=== PATIENT | male | born 1965 | race Caucasian/White ===

== ENCOUNTER 2021-09-16 09:04 | Outpatient (CLI) | payer OTHER | END 2021-09-16 09:05 | disposition home or self-care (01) | LOC: BICCT 09:04 | PROVIDERS: ATTEND Family Medicine | DX: Z12.2 Encounter for screening for malignant neoplasm of respiratory organs (principal); F17.210 Nicotine dependence, cigarettes, uncomplicated; J44.9 Chronic obstructive pulmonary disease, unspecified; N28.1 Cyst of kidney, acquired | CPT/HCPCS: 71271 ==

== ENCOUNTER 2022-05-01 13:08 | Outpatient (CLI) | payer OTHER ==
[2022-05-01 15:03] LABS: Hemoglobin 15.5 g/dL (13.5-17.5); Mean Corpuscular Hemoglobin 31.4 pg (27.0-33.0); Mean Corpuscular Volume 92.3 fl (81.2-95.1); Mean Platelet Volume 10.1 fl (7.4-10.4); Platelet Count 223 10x3/uL (150-450); RBC Distribution Width 12.8 % (11.5-14.5); Red Blood Cell (RBC) Count 4.94 10x6/uL (4.32-5.72); White Blood Cell (WBC) Count 8.7 10x3/uL (3.5-10.5)
[2022-05-01 15:07] LABS: Bilirubin Neg (Negative); Blood, Urine Negative (Negative); Clarity Clear (Clear); Glucose, Urine (Dipstick) Normal (Negative); Ketone, Urine Negative (Negative); Leukocyte Negative (Negative); Nitrite Negative (Negative); Protein, Urine (Dipstick) Negative (Neg-Trace); Specific Gravity, Urine 1.015 (1.005-1.030); Urobilinogen Normal mg/dL (Less than 2)
[2022-05-01 15:23] LABS: INR-International Normal Ratio 0.9; PTT 28.2 sec (22.0-33.0); Prothrombin Time 10.3 sec (9.5-12.1)
[2022-05-01 15:26] LABS: Bacteria/HPF Rare-Few HPF (None Seen); RBC/HPF 0-3 HPF (0-3); Squamous Epithelial 0-3 HPF (0-3); WBC/HPF 0-3 HPF (0-3)
[2022-05-01 15:27] LABS: Anion Gap 16 mmol/L (10-20); BUN (Urea Nitrogen) 19 mg/dL (8.4-25.7); Calc. Creatinine Clearance 0 mL/min (70-130); Calcium 9.5 mg/dL (7.8-10.44); Carbon Dioxide 26 mmol/L (22-29); Chloride 104 mmol/L (98-107); Estimated GFR 94; Glucose 105 mg/dL (70-105); Potassium 3.9 mmol/L (3.5-5.1); Sodium 142 mmol/L (136-145)
== END 2022-05-01 13:09 | disposition home or self-care (01) ==
LOC: LABBT 13:08
PROVIDERS: ATTEND Urology
DX: Z01.818 Encounter for other preprocedural examination (principal); N40.1 Benign prostatic hyperplasia with lower urinary tract symptoms; R35.0 Frequency of micturition; K58.1 Irritable bowel syndrome with constipation; N52.01 Erectile dysfunction due to arterial insufficiency; M51.37 Other intervertebral disc degeneration, lumbosacral region; Z20.822 Contact with and (suspected) exposure to COVID-19
CPT/HCPCS: 80048; 81001; 85027; 85610; 85730; 87086; 87811; 93005; 93010

== ENCOUNTER 2022-05-04 08:33 | Day surgery (SDC) | payer OTHER ==
[2022-05-04] MEDS ORDERED: fentaNYL Citrate/PF 100 MCG/2 ML SYRINGE ONE (11:00)
[2022-05-04] MEDS ORDERED: Bupivacaine 0.25% HCL 30 ML VIAL ONE (11:07)
[2022-05-04] MEDS ORDERED: Levofloxacin 500 mg/D5W 100 ml Premix Bag ONE (11:20)
[2022-05-04] MEDS ORDERED: Glycopyrrolate 0.2 MG/ML 5 ML SYRINGE ONE (11:31)
[2022-05-04] MEDS ORDERED: Ondansetron PF 4 MG/2 ML Vial ONE (11:31)
[2022-05-04] MEDS ORDERED: PHENYLEPHRINE-NS 100 MCG/ML 10 ML SYRINGE ONE (11:31)
[2022-05-04] MEDS ORDERED: PROPOFOL 200 MG/20 ML VIAL ONE (11:31)
[2022-05-04] MEDS ORDERED: Dexamethasone 20 MG/5 ML VIAL ONE (11:31)
[2022-05-04] MEDS ORDERED: Lidocaine 1% PF 5 ML VIAL ONE (11:31)
[2022-05-04] MEDS ORDERED: Succinylcholine 200 MG/10 ml SYRINGE FS ONE (11:31)
[2022-05-04] MEDS ORDERED: ePHEDrine 50 MG/ML VIAL ONE (11:31)
[2022-05-04] MEDS ORDERED: Fentanyl 100 MCG/2 ML VIAL ONE (13:08)
== END 2022-05-04 19:25 | disposition home or self-care (01) ==
LOC: SDC 08:33
PROVIDERS: ATTEND Urology
PROC: 01HY3MZ Insertion of Neurostimulator Lead into Peripheral Nerve, Percutaneous Approach (ICD-10-PCS; principal; 2022-05-04)
DX: N32.81 Overactive bladder (principal); N39.41 Urge incontinence; R39.0 Extravasation of urine; N40.1 Benign prostatic hyperplasia with lower urinary tract symptoms; R35.0 Frequency of micturition; K58.1 Irritable bowel syndrome with constipation; N52.01 Erectile dysfunction due to arterial insufficiency; G25.81 Restless legs syndrome; G43.909 Migraine, unspecified, not intractable, without status migrainosus; G62.9 Polyneuropathy, unspecified; M51.37 Other intervertebral disc degeneration, lumbosacral region; F17.210 Nicotine dependence, cigarettes, uncomplicated; Z79.899 Other long term (current) drug therapy; Z88.0 Allergy status to penicillin; Z20.822 Contact with and (suspected) exposure to COVID-19; Z98.890 Other specified postprocedural states; Z90.49 Acquired absence of other specified parts of digestive tract
CPT/HCPCS: 72220; 76000; C1897; J1100; J1956; J2405; J2704; J3010; J3370; J3490; S0020

== ENCOUNTER 2022-05-11 10:26 | Day surgery (SDC) | payer OTHER ==
[2022-05-02 15:36] VITALS: BMI 24.3
[2022-05-11] MEDS ORDERED: Lidocaine 1% MPF 2 ML VIAL ONE (11:10)
[2022-05-11] MEDS ORDERED: Sodium Chloride 0.9% 100 ML ONE (11:10)
[2022-05-11] MEDS ORDERED: CEFAZOLIN 2 GM VIAL ONE (11:10)
[2022-05-11] MEDS ORDERED: fentaNYL Citrate/PF 100 MCG/2 ML SYRINGE ONE (13:20)
[2022-05-11] MEDS ORDERED: Vancomycin 1 GM/200 ML BAG ONE (13:32)
[2022-05-11] MEDS ORDERED: ePHEDrine 50 MG/ML VIAL ONE (13:42)
[2022-05-11] MEDS ORDERED: Ondansetron PF 4 MG/2 ML Vial ONE (13:42)
[2022-05-11] MEDS ORDERED: Dexamethasone 20 MG/5 ML VIAL ONE (13:42)
[2022-05-11] MEDS ORDERED: Glycopyrrolate 0.2 MG/ML 5 ML SYRINGE ONE (13:42)
[2022-05-11] MEDS ORDERED: PHENYLEPHRINE-NS 100 MCG/ML 10 ML SYRINGE ONE (13:42)
[2022-05-11] MEDS ORDERED: Rocuronium Bromide 10 MG/ML (10ML VIAL) ONE (13:42)
[2022-05-11] MEDS ORDERED: PROPOFOL 200 MG/20 ML VIAL ONE (13:42)
[2022-05-11] MEDS ORDERED: NEOSTIGMINE 3 MG/3 ML SYR 3 MG/3 ML SYRINGE ONE (13:42)
[2022-05-11] MEDS ORDERED: Neomycin-Polymyxin 1 ML AMP ONE (14:09)
[2022-05-11] MEDS ORDERED: Bupivacaine 0.25% HCL 30 ML VIAL ONE (14:09)
[2022-05-11] MEDS ORDERED: Fentanyl 100 MCG/2 ML VIAL ONE (14:52)
[2022-05-11] MEDS ORDERED: HYDROcodone/Acetaminophen 5/325 mg Tablet ONE (16:01)
== END 2022-05-11 17:41 | disposition home or self-care (01) ==
LOC: SDC 10:26
PROVIDERS: ATTEND Urology
PROC: 0JH70BZ Insertion of Single Array Stimulator Generator into Back Subcutaneous Tissue and Fascia, Open Approach (ICD-10-PCS; principal; 2022-05-11)
PROC: 01HY3MZ Insertion of Neurostimulator Lead into Peripheral Nerve, Percutaneous Approach (ICD-10-PCS; principal; 2022-05-11)
PROC: 0JH80BZ Insertion of Single Array Stimulator Generator into Abdomen Subcutaneous Tissue and Fascia, Open Approach (ICD-10-PCS; principal; 2022-05-11)
DX: N32.81 Overactive bladder (principal); R33.9 Retention of urine, unspecified; R39.0 Extravasation of urine; Z79.899 Other long term (current) drug therapy; Z88.0 Allergy status to penicillin
CPT/HCPCS: J0690; J1100; J2405; J2704; J3010; J3370; J3490; S0020

== ENCOUNTER 2023-01-01 05:42 | Day surgery (SDC) | payer OTHER ==
[2022-12-28 08:39] VITALS: BMI 30.4
[2023-01-01] MEDS ORDERED: SUGAMMADEX SODIUM 200 MG/2 ML VIAL ONE (06:48)
[2023-01-01] MEDS ORDERED: fentaNYL PF 100 MCG/2 ML SYRINGE ONE ×3 (06:48→08:34)
[2023-01-01] MEDS ORDERED: Bupivacaine/Epinephrine 0.25% 30 ML VIAL ONE (06:49)
[2023-01-01] MEDS ORDERED: Levofloxacin 500 mg/D5W 100 ml Premix Bag ONE (07:02)
[2023-01-01] MEDS ORDERED: Rocuronium Bromide 10 MG/ML (10ML VIAL) ONE (07:31)
[2023-01-01] MEDS ORDERED: Lidocaine 1% PF 5 ML VIAL ONE (07:31)
[2023-01-01] MEDS ORDERED: PROPOFOL 200 MG/20 ML VIAL ONE (07:31)
[2023-01-01] MEDS ORDERED: HYDROmorphone 0.5 MG/0.5 ML SYRINGE ONE ×3 (08:18→08:49)
[2023-01-01] MEDS ORDERED: Ketorolac Tromethamine 30 MG/ML VIAL ONE (08:51)
== END 2023-01-01 10:51 | disposition home or self-care (01) ==
LOC: SDC 05:42
PROVIDERS: ATTEND Surgery
PROC: 0WUF0JZ Supplement Abdominal Wall with Synthetic Substitute, Open Approach (ICD-10-PCS; principal; 2023-01-01)
DX: K43.2 Incisional hernia without obstruction or gangrene (principal); N40.0 Benign prostatic hyperplasia without lower urinary tract symptoms; F17.210 Nicotine dependence, cigarettes, uncomplicated; Z88.0 Allergy status to penicillin; Z90.49 Acquired absence of other specified parts of digestive tract; Z90.89 Acquired absence of other organs
CPT/HCPCS: C1781; J1170; J1885; J1956; J2704; J7611

== ENCOUNTER 2023-02-13 08:18 | Outpatient (CLI) | payer OTHER ==
[2023-02-13 09:14] LABS: #Monocytes 0.6 10x3/uL (0.0-1.1); %Basophils 0.4 % (0.0-2.0); %Eosinophils 0.1 % (0.0-6.0); %Lymphocytes 27.9 % (18.0-47.0); %Monocytes 5.9 % (0.0-10.0); Hemoglobin 14.5 g/dL (13.5-17.5); Mean Corpuscular Hemoglobin 31.6 pg (27.0-33.0); Mean Platelet Volume 9.3 fl (7.4-10.4); Platelet Count 232 10x3/uL (150-450); RBC Distribution Width 12.6 % (11.5-14.5); Red Blood Cell (RBC) Count 4.59 10x6/uL (4.32-5.72); White Blood Cell (WBC) Count 10.7 10x3/uL (3.5-10.5)
[2023-02-13 09:35] LABS: ALT (SGPT) 18 U/L (8-55); AST (SGOT) 17 U/L (5-34); Albumin 4.3 g/dL (3.5-5.0); Alkaline Phosphatase 115 U/L (40-110); Anion Gap 14 mmol/L (10-20); BUN (Urea Nitrogen) 15 mg/dL (8.4-25.7); Bilirubin, Total 0.3 mg/dL (0.2-1.2); Calc. Creatinine Clearance 0 mL/min (70-130); Calcium 8.8 mg/dL (7.8-10.44); Carbon Dioxide 25 mmol/L (22-29); Chloride 107 mmol/L (98-107); Estimated GFR 74; Globulin 2.6 g/dL (2.4-3.5); Glucose 110 mg/dL (70-105); Potassium 3.8 mmol/L (3.5-5.1); Protein, Total 6.9 g/dL (6.0-8.3); Sodium 142 mmol/L (136-145)
== END 2023-02-13 08:19 | disposition home or self-care (01) ==
LOC: LABBT 08:18
PROVIDERS: ATTEND Surgery
DX: Z01.812 Encounter for preprocedural laboratory examination (principal); T81.49XA Infection following a procedure, other surgical site, initial encounter
CPT/HCPCS: 80053; 85025

== ENCOUNTER 2023-02-14 09:32 | Day surgery (SDC) | payer OTHER ==
[2023-02-13 08:50] VITALS: BMI 29.9
[2023-02-14] MEDS ORDERED: Fentanyl 250 MCG/5 ML VIAL ONE (12:25)
[2023-02-14] MEDS ORDERED: SUGAMMADEX SODIUM 200 MG/2 ML VIAL ONE (12:25)
[2023-02-14] MEDS ORDERED: Bupivacaine HCl 0.5%/Epinephrine 1:200,000/PF 30 ml Vial ONE (12:27)
[2023-02-14] MEDS ORDERED: LevoFLOXacin 500 mg/D5W 100 ML BAG ONE (12:36)
[2023-02-14] MEDS ORDERED: Lidocaine 1% PF 5 ML VIAL ONE (12:50)
[2023-02-14] MEDS ORDERED: Rocuronium Bromide 10 MG/ML (10ML VIAL) ONE (12:50)
[2023-02-14] MEDS ORDERED: PROPOFOL 200 MG/20 ML VIAL ONE (12:50)
[2023-02-14] MEDS ORDERED: fentaNYL 50 mcg/mL 1 mL Vial ONE ×2 (13:41→13:52)
== END 2023-02-14 15:15 | disposition home or self-care (01) ==
LOC: SDC 09:32
PROVIDERS: ATTEND Surgery
PROC: 0W9F0ZZ Drainage of Abdominal Wall, Open Approach (ICD-10-PCS; principal; 2023-02-14)
PROC: 0WPF0JZ Removal of Synthetic Substitute from Abdominal Wall, Open Approach (ICD-10-PCS; principal; 2023-02-14)
DX: T81.49XA Infection following a procedure, other surgical site, initial encounter (principal); F17.210 Nicotine dependence, cigarettes, uncomplicated; Z90.49 Acquired absence of other specified parts of digestive tract; Z90.89 Acquired absence of other organs; Z88.0 Allergy status to penicillin
CPT/HCPCS: 87070; 87077; 87186; 87205; J1956; J2704; J3010